=== PATIENT | female | born 1960 ===

== ENCOUNTER 2016-10-06 10:24 | Emergency (ER) | payer MEDICAID, OTHER ==
[2016-10-06 10:47] VITALS: BP 133/79; PULSE 87; RESP 18; TEMP 97.5; O2SAT 97
--- NOTE | 2016-10-06 12:03 | ED PDOC ---
HPI: Abdomen History Per: Patient History/Exam Limitations: no limitations Onset/Duration Of Symptoms: Days (5), Waxing/Waning, Gradual Outside of [place] travel?: No Current Symptoms Are (Timing): Still Present Severity: Moderate Pain Scale Rating Of: 8 Location Of Pain/Discomfort: RUQ (radiating to right flank) Associated Symptoms: Chills, Nausea, Back Pain. denies: Fever, Vomiting, Diarrhea, Urinary Symptoms Exacerbating Factors: Movement Additional History Per: Patient Abnormal Vaginal Bleeding: No <Veto Mckeon - Last Filed: 10/06/16 12:38> <Vicente Humphries - Last Filed: 10/06/16 14:43> Time Seen by Provider: 10/06/16 11:12 Chief Complaint (Nursing): Abdominal Pain Additional Complaint(s): 56 y/o F presenting with gradual onset abdominal pain which has been present x 5 days. Patient states pain started 5 days ago, initially LUQ, evaluated by [facility], diagnosed with UTI and discharged with ABX. Patient states pain migrated to RUQ last night and is currently worsening 8/10 intensity. Radiates to flank, aggravated by movement, associated with nausea and chills. No alleviating factors. Denies f/v/d/cp/sob/hematochezia,hematuria. No recent travel, consumption of abnormal foods, last BM this AM, soft, brown color. PMD: Dr. Tirado PMH: chronic back pain Meds: flexiril, tramadol, macrobid day 2 PSH: cholecystectomy, ALANIS, back surgery (Veto Mckeon) Supervising Attending Note <Veto Mckeon - Last Filed: 10/06/16 12:38> - Supervising Attending Note The Documented history was done by the: Physician Rural Route Mail [employer]rier The documented physical exam was done by the: Physician Rural Route Mail Carrier The documented procedures were done by the: Physician Rural Route Mail Carrier - Attestation: I have personally seen and examined this patient.: Yes I have fully participated in the care of the patient.: Yes I have reviewed all pertinent clinical information: Yes <Vicente Humphries - Last Filed: 10/06/16 14:43> - Notes: Notes:: Pain R flank. (Vicente Humphries) Past Medical History - Medical History PMH: Kidney Stones - Surgical History Surgical History: Back Surgery, Cholecystectomy, Hernia Repair - Family History Family History: States: Unknown Family Hx <Veto Mckeon F - Last Filed: 10/06/16 12:38> <YandelVicente M - Last Filed: 10/06/16 14:43> Vital Signs: Last Vital Signs Temp 97.5 F L 10/06/16 10:46 Pulse 87 10/06/16 10:46 Resp 18 10/06/16 10:46 BP 133/79 10/06/16 10:46 Pulse Ox 97 10/06/16 12:42 - Home Medications Home Medications: Ambulatory Orders Medication Instructions Recorded Famotidine [Pepcid] 20 mg PO DAILY PRN #6 tab 10/06/16 - Allergies Allergies/Adverse Reactions: Allergies Allergy/AdvReac Type Severity Reaction Status Date / Time No Known Allergies Allergy Verified 10/06/16 12:00 Review of Systems Constitutional: Positive for: Chills. Negative for: Fever, Weakness Eyes: Negative for: Pain Cardiovascular: Negative for: Chest Pain, Edema, Light Headedness Respiratory: Negative for: Cough, Shortness of Breath, Hemoptysis, Wheezing Gastrointestinal: Positive for: Nausea, Abdominal Pain. Negative for: Vomiting , Diarrhea, Constipation, Melena, Hematochezia, Hematemesis Genitourinary Female: Negative for: Dysuria, Hematuria, Vaginal Discharge, Vaginal Bleeding, Pelvic Pain Neurological: Negative for: Weakness, Numbness, Incoordination, Change in Speech <Veto Mckeon F - Last Filed: 10/06/16 12:38> Physical Exam - Physical Exam Appears: Positive for: Non-toxic, No Acute Distress Head Exam: Positive for: ATRAUMATIC, NORMOCEPHALIC Skin: Positive for: Warm, Dry Eye Exam: Positive for: EOMI, PERRL Neck: Positive for: Normal, Painless ROM Cardiovascular/Chest: Positive for: Regular Rate, Rhythm Respiratory: Positive for: Normal Breath Sounds. Negative for: Rales, Rhonchi, Wheezing Gastrointestinal/Abdominal: Positive for: Soft. Negative for: Tenderness, Distended, Guarding Back: Positive for: R CVA Tenderness. Negative for: L CVA Tenderness, Vertebral Tenderness Extremity: Negative for: Pedal Edema Neurologic/Psych: Positive for: Alert, Oriented <Veto Mckeon - Last Filed: 10/06/16 12:38> - Physical Exam Cardiovascular/Chest: Positive for: Regular Rate, Rhythm Respiratory: Positive for: Normal Breath Sounds <Vicente Humphries - Last Filed: 10/06/16 14:43> - ECG O2 Sat by Pulse Oximetry: 97 <Veto Mckeon - Last Filed: 10/06/16 12:38> - Laboratory Results Result Diagrams: 10/06/16 12:50 10/06/16 12:50 Interpretation Of Abn Labs: ast/alt elevation - ECG Pulse Ox Interpretation: Normal - CT Scan/US ct Other Rad Studies (CT/US): Read By Radiologist Other Rad Interpretation: no acute <Vicente Humphries - Last Filed: 10/06/16 14:43> - Progress ED Course And Treament: RUQ pain/flank pain - cbc, cmp, UA, toradol - CT abdo - reassess (Veto Mckeon Jose) 1438: Stable. AAOx3. Pain free. Tolerated PO. Fu with pcp. Mild elevated liver enzymes. Stable. Fu with pcp. (Vicente Humphries) Disposition - Disposition Disposition: Transfer of Care Disposition Time: 12:41 <Veto Mckeon - Last Filed: 10/06/16 12:38> - Patient ED Disposition Is Patient to be Admitted: No Counseled Patient/Family Regarding: Studies Performed, Diagnosis, Need For Followup, Rx Given - Disposition Disposition: Routine/Home <Vicente Humphries - Last Filed: 10/06/16 14:43> - Clinical Impression Clinical Impression: Abdominal pain, Elevated liver enzymes - Disposition Referrals: [facility] [Outside] - 10/07/16 Condition: STABLE Additional Instructions: See your doctor without fail in 3 days. You have elevated liver enzymes and need further evaluation. Return if not better in 3 days. Consulte a donald mdico sin falta en 3 bonilla. Tiene enzimas hepticas elevadas y necesita atilio evaluacin adicional. Vuelva si no mejor en 3 bonilla. Prescriptions: Famotidine [Pepcid] 20 mg PO DAILY PRN #6 tab PRN Reason: Pain Instructions: Acute Abdominal Pain (ED) Print Language: UGANDAN
[2016-10-06 13:05] LABS: HEMATOCRIT 43.9 % (34.0-47.0); MEAN CELL VOLUME 84.5 fl (81.0-99.0); MEAN CORPUSCULAR HEMOGLOBIN 28.6 pg (27.0-31.0); MEAN CORPUSCULAR HGB CONC 33.8 g/dL (33.0-37.0); RED CELL DISTRIBUTION WIDTH 14.4 % (11.5-14.5); WHITE BLOOD COUNT 6.1 K/uL (4.8-10.8)
--- NOTE | 2016-10-06 13:05 | CT ---
PROCEDURE: CT Abdomen and Pelvis without intravenous contrast HISTORY: RUQ and right flank pain COMPARISON: Comparison is made to the previous study dated 04/09/2013 TECHNIQUE: Axial and reformatted coronal and sagittal CT images of the abdomen and pelvis were obtained without IV or oral contrast administration.. Contrast Dose: 0 IV contrast Radiation dose: Total exam DLP = 931.46 mGy-cm. This CT exam was performed using one or more of the following dose reduction techniques: Automated exposure control, adjustment of the mA and/or kV according to patient size, and/or use of iterative reconstruction technique. FINDINGS: LOWER THORAX: Large hiatus hernia is again seen. No evidence of acute pathology at the lung bases. LIVER: The liver is mildly enlarged heterogeneous demonstrate patchy low-attenuation likely due to fatty infiltration. GALLBLADDER AND BILE DUCTS: Patient status post cholecystectomy since the previous exam. PANCREAS: Unremarkable. No gross lesion or ductal dilatation. SPLEEN: Unremarkable. ADRENALS: Unremarkable. No mass. KIDNEYS AND URETERS: Unremarkable. No hydronephrosis. No solid mass. VASCULATURE: Unremarkable. No aortic aneurysm. BOWEL: Unremarkable. No obstruction. No gross mural thickening. Colonic diverticulosis seen without evidence of diverticulitis. APPENDIX: There is no evidence of appendicitis. PERITONEUM: Unremarkable. No free fluid. No free air. LYMPH NODES: Unremarkable. No enlarged lymph nodes. BLADDER: Unremarkable. REPRODUCTIVE: The patient is likely status post partial hysterectomy. BONES: The patient is status post internal fixation at the lower lumbar spine. Normal alignment of the lumbar spine vertebrae is seen. OTHER FINDINGS: Small fat containing right inguinal hernia is again seen. IMPRESSION: No evidence of nephrolithiasis or hydronephrosis. Mild hepatomegaly with findings suggestive of [id number] hepatic steatosis. Status post cholecystectomy. No CT evidence of appendicitis.
[2016-10-06 13:10] LABS: URINE COLOR LIGHT YELLOW (YELLOW)
[2016-10-06 13:11] LABS: RBC URINE 1 /hpf (0-3); URINE BILIRUBIN NEGATIVE (NEGATIVE); URINE BLOOD TRACE (NEGATIVE); URINE GLUCOSE (UA) NEGATIVE (Normal); URINE KETONE NEGATIVE (NEGATIVE); URINE LEUKOCYTE ESTERASE Negative Leu/uL (Negative); URINE PROTEIN NEGATIVE (NEGATIVE); URINE UROBILINOGEN 0.2 mg/dL (0.2-1.0); WBC URINE 1 /hpf (0-5)
[2016-10-06 13:12] LABS: URINE BACTERIA FEW (<OCC)
[2016-10-06 13:15] LABS: ALB/GLOB RATIO 1.2 (1.0-2.1); ALKALINE PHOSPHATASE 101 U/L (38-126); ALT/SGPT 53 U/L (9-52); AST/SGOT 42 U/L (14-36); BILIRUBIN,TOTAL 1.2 mg/dl (0.2-1.3); BLOOD UREA NITROGEN 14 mg/dl (7-17); CALCIUM 8.7 mg/dL (8.4-10.2); CARBON DIOXIDE 24 mmol/L (22-30); CHLORIDE 105 mmol/L (98-107); GFR AFRICAN-AMERICAN > 60; GLUCOSE,RANDOM 114 mg/dL (65-105); LIPASE 83 U/L (23-300); POTASSIUM 3.7 MMOL/L (3.6-5.0); SODIUM 141 mmol/l (132-148); TOTAL PROTEIN 7.1 G/DL (6.3-8.2)
== END 2016-10-06 14:59 | disposition home or self-care (01) ==
LOC: H.ER 10:24
DX: R10.9 Unspecified abdominal pain (principal); R74.8 Abnormal levels of other serum enzymes; Z90.49 Acquired absence of other specified parts of digestive tract; G89.29 Other chronic pain

== ENCOUNTER 2016-10-07 20:24 | Emergency (ER) | payer MEDICAID ==
[2016-10-07 21:50] VITALS: PULSE 74; RESP 14; TEMP 98.4; O2SAT 100
[2016-10-07] MEDS ORDERED: Sodium Chloride 0.9% 1,000 ML IV STA (22:30)
[2016-10-07 23:01] LABS: BASO # 0.1 K/uL (0.0-0.2); EOS # 0.2 K/uL (0.0-0.7); EOS % 2.8 % (0.0-4.0); HEMATOCRIT 42.8 % (34.0-47.0); LYMPH # 2.8 K/uL (1.0-4.3); LYMPH % 39.6 % (20.0-40.0); MEAN CELL VOLUME 84.4 fl (81.0-99.0); MEAN CORPUSCULAR HEMOGLOBIN 28.4 pg (27.0-31.0); MEAN CORPUSCULAR HGB CONC 33.7 g/dL (33.0-37.0); MEAN PLATELET VOLUME 8.2 fl (7.2-11.7); MONO # 0.4 K/uL (0.0-0.8); MONO % 6.3 % (0.0-10.0); NEUT # 3.5 K/uL (1.8-7.0); NEUT % 50.3 % (50.0-75.0); NRBC % 0.1 % (0.0-0.0); RED CELL DISTRIBUTION WIDTH 14.3 % (11.5-14.5)
[2016-10-07 23:15] LABS: ALB/GLOB RATIO 1.1 (1.0-2.1); ALKALINE PHOSPHATASE 92 U/L (38-126); ALT/SGPT 48 U/L (9-52); AST/SGOT 43 U/L (14-36); BILIRUBIN,TOTAL 1.2 mg/dl (0.2-1.3); BLOOD UREA NITROGEN 18 mg/dl (7-17); CALCIUM 8.9 mg/dL (8.4-10.2); CARBON DIOXIDE 24 mmol/L (22-30); CHLORIDE 104 mmol/L (98-107); GFR AFRICAN-AMERICAN > 60; GLUCOSE,RANDOM 100 mg/dL (65-105); LIPASE 59 U/L (23-300); SODIUM 137 mmol/l (132-148); TOTAL PROTEIN 7.6 G/DL (6.3-8.2)
[2016-10-07 23:17] LABS: POTASSIUM 4.4 MMOL/L (3.6-5.0)
--- NOTE | 2016-10-07 23:43 | ED PDOC ---
HPI: Abdomen Time Seen by Provider: 10/07/16 22:31 Chief Complaint (Nursing): Abdominal Pain Chief Complaint (Provider): abdominal pain History Per: Patient History/Exam Limitations: no limitations Additional Complaint(s): 56yo F in ED for eval of epigastric pain since Monday was seen in ED yesterday- had negative CT scan and slightly elevated LFTs was given Pepcid-with limited relief. admits to nausea without vomiting. pt states pain radiates to back. no fever no chills no change in BM. pt states pain worsen after eating. pt has Ct shows enlarged liver. Past Medical History Reviewed: Historical Data, Nursing Documentation, Vital Signs Vital Signs: Last Vital Signs Temp 98.4 F 10/07/16 21:47 Pulse 74 10/07/16 21:47 Resp 14 10/07/16 21:47 BP Pulse Ox 100 10/07/16 23:45 - Medical History PMH: Kidney Stones - Surgical History Surgical History: Back Surgery, Cholecystectomy, Hernia Repair - Family History Family History: States: Unknown Family Hx - Home Medications Home Medications: Ambulatory Orders Medication Instructions Recorded Famotidine [Pepcid] 20 mg PO DAILY PRN #6 tab 10/06/16 Omeprazole Magnesium [Prilosec] 10 mg PO DAILY #10 suspdr.pkt 10/08/16 - Allergies Allergies/Adverse Reactions: Allergies Allergy/AdvReac Type Severity Reaction Status Date / Time No Known Allergies Allergy Verified 10/06/16 12:00 Review of Systems ROS Statement: Except As Marked, All Systems Reviewed And Found Negative Constitutional: Negative for: Fever, Chills Gastrointestinal: Positive for: Nausea, Abdominal Pain. Negative for: Vomiting Physical Exam - Reviewed Nursing Documentation Reviewed: Yes Vital Signs Reviewed: Yes - Physical Exam Appears: Positive for: Well, Non-toxic, No Acute Distress Head Exam: Positive for: ATRAUMATIC, NORMAL INSPECTION, NORMOCEPHALIC Neck: Positive for: Normal, Painless ROM Cardiovascular/Chest: Positive for: Regular Rate, Rhythm Respiratory: Positive for: CNT, Normal Breath Sounds Gastrointestinal/Abdominal: Positive for: Bowel Sounds, Soft, Tenderness ( epigastric) Neurologic/Psych: Positive for: Alert, Oriented - Laboratory Results Result Diagrams: 10/07/16 22:39 10/07/16 22:39 - ECG O2 Sat by Pulse Oximetry: 100 - Progress ED Course And Treament: impression: ulcer/GERD. pt at this time is stable no hematemsis. pt will get repeat labs draw and IVs fluids, zofran and pain control Medical Decision Making Medical Decision Making: PT with improved labs in ED. considering CT yesterday did not show acute disease , and labs have improved. Pt does not require further ER intervention at this time, will need GI f/u. case discussed with MD giancarlo. pt will be d/c on prilosec Disposition - Clinical Impression Clinical Impression: Abdominal pain - Patient ED Disposition Is Patient to be Admitted: No Counseled Patient/Family Regarding: Need For Followup, Rx Given - Disposition Referrals: Coleman Pendleton MD [Staff Provider] - Disposition: Routine/Home Disposition Time: 00:23 Condition: STABLE Prescriptions: Omeprazole Magnesium [Prilosec] 10 mg PO DAILY #10 suspdr.pkt Instructions: Gastroesophageal Reflux Disease (ED) Print Language: URDU
== END 2016-10-08 00:50 | disposition home or self-care (01) ==
LOC: H.ER 20:24
DX: K21.9 Gastro-esophageal reflux disease without esophagitis (principal); R11.0 Nausea; R94.5 Abnormal results of liver function studies

== ENCOUNTER 2017-08-03 20:29 | Emergency (ER) | payer MEDICAID, MEDICARE ==
[2017-08-03 20:51] VITALS: BP 158/95; PULSE 81; RESP 16; TEMP 98.7; O2SAT 100
--- NOTE | 2017-08-03 21:24 | ED PDOC ---
HPI: Chest Pain Time Seen by Provider: 08/03/17 21:02 Chief Complaint (Nursing): Chest Pain Chief Complaint (Provider): chest/back pain History Per: Patient, Family History/Exam Limitations: no limitations Onset/Duration Of Symptoms: Days (5), Waxing/Waning Current Symptoms Are (Timing): Still Present Quality: "Pain" Exacerbating Factors: Turning, Movement, Deep Breathing Additional Complaint(s): 57 y/o female presents with diffuse chest and upper back pain x 5 days. Pain worsened by movement, to touch,a nd with deep breaths. Patient was sick with flu-like symptoms one week ago, during which she reports persistent coughing. Patient finished course of tamiflu Monday and cough/congestion resolved, but states pain started the next day. Denies fever, nausea/vomiting, nasal congestion, cough, shortness of breath, palpitations, abdominal pain, leg pain/ swelling. Past Medical History Reviewed: Historical Data, Nursing Documentation, Vital Signs Vital Signs: Last Vital Signs Temp 98.7 F 08/03/17 20:47 Pulse 81 08/03/17 20:47 Resp 16 08/03/17 20:47 BP 158/95 H 08/03/17 20:47 Pulse Ox 100 08/03/17 21:26 - Medical History PMH: Back Problems, Gall Bladder Disease, Kidney Stones - Surgical History Surgical History: Back Surgery, Cholecystectomy, Hernia Repair - Family History Family History: States: Unknown Family Hx - Living Arrangements Living Arrangements: With Family - Social History Current smoker - smoking cessation education provided: No Alcohol: None Drugs: Denies - Home Medications Home Medications: Ambulatory Orders Medication Instructions Recorded Famotidine [Pepcid] 20 mg PO DAILY PRN #6 tab 10/06/16 Omeprazole Magnesium [Prilosec] 10 mg PO DAILY #10 suspdr.pkt 10/08/16 - Allergies Allergies/Adverse Reactions: Allergies Allergy/AdvReac Type Severity Reaction Status Date / Time No Known Allergies Allergy Verified 08/03/17 20:46 Review of Systems ROS Statement: Except As Marked, All Systems Reviewed And Found Negative Cardiovascular: Positive for: Chest Pain Musculoskeletal: Positive for: Back Pain Physical Exam - Reviewed Nursing Documentation Reviewed: Yes Vital Signs Reviewed: Yes - Physical Exam Appears: Positive for: Well, Non-toxic, No Acute Distress Head Exam: Positive for: ATRAUMATIC, NORMAL INSPECTION, NORMOCEPHALIC Skin: Positive for: Normal Color Eye Exam: Positive for: Normal appearance ENT: Positive for: Normal ENT Inspection Cardiovascular/Chest: Positive for: Regular Rate, Rhythm. Negative for: Chest Non Tender (tender to palpate upper anterior chest wall; no swelling, ecchymosis , flail chest noted) Respiratory: Positive for: Normal Breath Sounds Gastrointestinal/Abdominal: Positive for: Normal Exam Back: Positive for: Normal Inspection, Muscle Spasm (tender to palpate diffuse upper back; bilateral trapezius). Negative for: L CVA Tenderness, R CVA Tenderness, Vertebral Tenderness, Decreased ROM Extremity: Positive for: Normal ROM Neurologic/Psych: Positive for: Alert, Oriented - Laboratory Results Result Diagrams: 08/03/17 21:40 08/03/17 21:40 - ECG ECG: Positive for: Viewed By Me (reviewed by ED attending) ECG Rhythm: Positive for: Sinus Rhythm O2 Sat by Pulse Oximetry: 100 Pulse Ox Interpretation: Normal - Radiology X-Ray: Viewed By Me X-Ray Interpretation: No Acute Disease - Progress ED Course And Treament: labs, ekg, chest xray, IV toradol, PO flexeril On re-eval patient notes improvement of pain. PAtient has muscle relaxants and ibuprofen at home from previous back surgery; advised to take PRN pain. Follow up PMD within 48 hours. Return precautions given Disposition - Clinical Impression Clinical Impression: Chest wall pain, Back pain - Patient ED Disposition Is Patient to be Admitted: No Counseled Patient/Family Regarding: Studies Performed, Diagnosis, Need For Followup - Disposition Disposition: Routine/Home Disposition Time: 23:14 Condition: IMPROVED Instructions: Costochondritis (DC), Upper Back Pain (DC) Forms: [employer] (Serbian) Print Language: QATARI
[2017-08-03 21:51] LABS: BASO # 0.1 K/uL (0.0-0.2); BASO % 1.1 % (0.0-2.0); EOS # 0.2 K/uL (0.0-0.7); EOS % 2.6 % (0.0-4.0); HEMOGLOBIN 14.2 g/dL (12.0-16.0); LYMPH # 3.1 K/uL (1.0-4.3); LYMPH % 37.4 % (20.0-40.0); MEAN CELL VOLUME 84.9 fl (81.0-99.0); MEAN CORPUSCULAR HEMOGLOBIN 28.4 pg (27.0-31.0); MEAN CORPUSCULAR HGB CONC 33.5 g/dL (33.0-37.0); MEAN PLATELET VOLUME 8.2 fl (7.2-11.7); MONO # 0.6 K/uL (0.0-0.8); MONO % 6.6 % (0.0-10.0); NEUT # 4.3 K/uL (1.8-7.0); NEUT % 52.3 % (50.0-75.0); RBC 4.99 Mil/uL (3.80-5.20); RED CELL DISTRIBUTION WIDTH 14.2 % (11.5-14.5); WHITE BLOOD COUNT 8.3 K/uL (4.8-10.8)
[2017-08-03 22:18] LABS: ALB/GLOB RATIO 1.3 (1.0-2.1); ALBUMIN 4.1 g/dL (3.5-5.0); ALT/SGPT 54 U/L (9-52); AST/SGOT 34 U/L (14-36); BLOOD UREA NITROGEN 20 mg/dl (7-17); CALCIUM 9.6 mg/dL (8.4-10.2); GFR AFRICAN-AMERICAN > 60; GFR NON-AFRICAN AMERICAN > 60
== END 2017-08-03 23:14 | disposition home or self-care (01) ==
LOC: H.ER 20:29
DX: R07.89 Other chest pain (principal); M54.9 Dorsalgia, unspecified; Z87.442 Personal history of urinary calculi
CPT/HCPCS: 71046; 80053; 84484; 85025; 99281; J1885

== ENCOUNTER 2017-09-24 12:22 | Emergency (ER) | payer MEDICARE ==
[2017-09-24 12:28] VITALS: BMI 32.9
[2017-09-24 12:30] VITALS: RESP 20
[2017-09-24] MEDS ORDERED: Albuterol-Ipratrop 3 mg / 0.5 (3 ml) UD INH STA (12:51)
--- NOTE | 2017-09-24 12:54 | ED PDOC ---
HPI: CCC, URI, Sore Throat Time Seen by Provider: 09/24/17 12:32 Chief Complaint (Nursing): Back Pain Chief Complaint (Provider): Cough, Congestion History Per: Patient History/Exam Limitations: no limitations Onset/Duration Of Symptoms: Other (x 1 week) Current Symptoms Are (Timing): Still Present Additional Complaint(s): Shayy is a 57 y/o female who presents to the ED complaining of cough for the past week with associated subjective fever, nose congestion, and chest pain secondary to cough. Patient denies phlegm. No other medical complaints. Patient denies any recent travel or known sick contacts. Patient denies chills or body aches. PMD: Dr. Vinson Past Medical History Reviewed: Historical Data, Nursing Documentation, Vital Signs Vital Signs: Last Vital Signs Temp 98.3 F 09/24/17 12:28 Pulse 85 09/24/17 12:28 Resp 20 09/24/17 12:28 BP 141/85 09/24/17 12:28 Pulse Ox 96 09/24/17 13:07 - Medical History PMH: Back Problems - Surgical History Surgical History: Back Surgery, Cholecystectomy, Hernia Repair Other surgeries: hysterectomy, varicose veign removal, lithotripsy - Family History Family History: States: No Known Family Hx - Living Arrangements Living Arrangements: With Family - Social History Current smoker - smoking cessation education provided: No Ex-Smoker (has not smoked in the last 12 months): No Alcohol: None Drugs: Denies - Home Medications Home Medications: Ambulatory Orders Medication Instructions Recorded Famotidine [Pepcid] 20 mg PO DAILY PRN #6 tab 10/06/16 Omeprazole Magnesium [Prilosec] 10 mg PO DAILY #10 suspdr.pkt 10/08/16 Albuterol HFA [Ventolin HFA 90 1 puff IH ASDIR #1 unit 09/24/17 mcg/actuation (8 g)] Azithromycin [Zithromax] 250 mg PO DAILY #6 tab 09/24/17 Benzonatate 200 mg PO TID PRN #20 capsule 09/24/17 Methylprednisolone [Medrol Dose 4 mg PO ASDIR #21 mg 09/24/17 Pack (21 tabs)] - Allergies Allergies/Adverse Reactions: Allergies Allergy/AdvReac Type Severity Reaction Status Date / Time No Known Allergies Allergy Verified 08/03/17 20:46 Review of Systems ROS Statement: Except As Marked, All Systems Reviewed And Found Negative Constitutional: Positive for: Fever (subjective) ENT: Positive for: Nose Congestion Cardiovascular: Positive for: Chest Pain (due to cough) Respiratory: Positive for: Cough. Negative for: Sputum Gastrointestinal: Negative for: Nausea, Vomiting Physical Exam - Reviewed Nursing Documentation Reviewed: Yes Vital Signs Reviewed: Yes - Physical Exam Appears: Positive for: Well, Non-toxic, No Acute Distress Skin: Positive for: Normal Color. Negative for: Rash ENT: Positive for: Nasal Congestion. Negative for: Pharyngeal Erythema, Tonsillar Exudate, Tonsillar Swelling Cardiovascular/Chest: Positive for: Regular Rate, Rhythm. Negative for: Murmur Respiratory: Positive for: Decreased Breath Sounds. Negative for: Accessory Muscle Use, Respiratory Distress Lymphatic: Positive for: Normal Exam Neurologic/Psych: Positive for: Alert, Oriented - ECG Interpretation Of ECG: NSR 77 bpm, no acute changes, reviewed by PA and ED attending O2 Sat by Pulse Oximetry: 96 (RA) Pulse Ox Interpretation: Normal - Other Rad CXR X-Ray: Interpreted by Me, Viewed By Me X-Ray Interpretation: no acute finding Nebulizer Treatments/Peak Flow - Duonebs Number of Bronchodilator Doses given?: 1 (duoneb) - Pre/Post Peak Flow Pre Treatment Peak Flow: 300 Post treatment Peak Flow: 350 - Steroid Treatment Steroid: Oral (rx medrol dose pack) - Clinical Response Clinical Response: Improved Medical Decision Making Medical Decision Making: Time: 12:50 Initial Impression: 57 y/o female with cough and congestion Initial Plan: --Chest XR --EKG --Duoneb Will d/c with rx zithromax, tessalon perles, medrol dose pack and ventolin. Advised fluids, rest and PMD follow up in 2-3 days. Scribe Attestation: Documented by Laci Vaughan, acting as a scribe for Carmelina Pino PA-C. Provider Scribe Attestation: All medical record entries made by the Scribe were at my direction and personally dictated by me. I have reviewed the chart and agree that the record accurately reflects my personal performance of the history, physical exam, medical decision making, and the department course for this patient. I have also personally directed, reviewed, and agree with the discharge instructions and disposition. Disposition - Clinical Impression Clinical Impression: Acute bronchitis - Patient ED Disposition Is Patient to be Admitted: No Counseled Patient/Family Regarding: Studies Performed, Diagnosis, Need For Followup, Rx Given - Disposition Referrals: Micheal Vinson [Staff Provider] - Disposition: Routine/Home Disposition Time: 13:22 Condition: STABLE Additional Instructions: Take prescription meds as directed. Rest and drink plenty of fluids. Follow-up with primary doctor in 2-3 days. Prescriptions: Albuterol HFA [Ventolin HFA 90 mcg/actuation (8 g)] 1 puff IH ASDIR #1 unit Azithromycin [Zithromax] 250 mg PO DAILY #6 tab Benzonatate 200 mg PO TID PRN #20 capsule PRN Reason: Cough Methylprednisolone [Medrol Dose Pack (21 tabs)] 4 mg PO ASDIR #21 mg Instructions: Acute Bronchitis, Adult (DC) Forms: [employer] (Frisian)
--- NOTE | 2017-09-24 13:27 | RAD ---
HISTORY: cough COMPARISON: No prior. TECHNIQUE: Chest PA and lateral FINDINGS: LUNGS: No active pulmonary disease. PLEURA: No significant pleural effusion identified. No pneumothorax apparent. CARDIOVASCULAR: Normal. OSSEOUS STRUCTURES: No significant abnormalities. VISUALIZED UPPER ABDOMEN: Normal. OTHER FINDINGS: None. IMPRESSION: No active disease.
[2017-09-24 13:46] VITALS: BP 148/89; PULSE 78; TEMP 98; O2SAT 100
--- NOTE | 2017-09-25 08:16 | CARD ---
APPROVED REPORT EKG Measurement Heart [id number] OR [id number] <Conclusion> Normal sinus rhythm Left axis deviation Abnormal ECG
== END 2017-09-24 15:08 | disposition home or self-care (01) ==
LOC: H.ER 12:22
DX: J20.9 Acute bronchitis, unspecified (principal)

== ENCOUNTER 2017-10-26 17:32 | Emergency (ER) | payer MEDICARE ==
[2017-10-26 17:32] VITALS: BMI 32.9
[2017-10-26 17:42] VITALS: RESP 18
--- NOTE | 2017-10-26 18:11 | ED PDOC ---
HPI: Chest Pain Time Seen by Provider: 10/26/17 18:09 Chief Complaint (Nursing): Chest Pain Chief Complaint (Provider): cp History Per: Patient (57 y/o female here for chest pain/back pain since this am noted pleuritic. Back pain worse with movement. Denies any cough/fever/ chills. Has also noted ruq abd pain yesterday now resolved. Has h/o cholecystectomy. Has been seen by PMD Dr. Tom bustos of [place] and has had bloodwork monday and cxr yesterday. Did not take any OTC medications. ) Past Medical History Reviewed: Historical Data, Nursing Documentation, Vital Signs Vital Signs: Last Vital Signs Temp 98.1 F 10/26/17 17:40 Pulse 76 10/26/17 17:40 Resp 18 10/26/17 17:40 BP 143/84 10/26/17 17:40 Pulse Ox 97 10/26/17 19:06 - Medical History PMH: Back Problems, Gall Bladder Disease, Kidney Stones - Surgical History Surgical History: Back Surgery, Cholecystectomy, Hernia Repair - Family History Family History: States: Unknown Family Hx - Home Medications Home Medications: Ambulatory Orders Medication Instructions Recorded Famotidine [Pepcid] 20 mg PO DAILY PRN #6 tab 10/06/16 Omeprazole Magnesium [Prilosec] 10 mg PO DAILY #10 suspdr.pkt 10/08/16 Albuterol HFA [Ventolin HFA 90 1 puff IH ASDIR #1 unit 09/24/17 mcg/actuation (8 g)] Azithromycin [Zithromax] 250 mg PO DAILY #6 tab 09/24/17 Benzonatate 200 mg PO TID PRN #20 capsule 09/24/17 Methylprednisolone [Medrol Dose 4 mg PO ASDIR #21 mg 09/24/17 Pack (21 tabs)] Famotidine [Pepcid] 20 mg PO Q12 PRN #10 tab 10/26/17 Naproxen 375 mg PO Q12 PRN #10 tablet 10/26/17 - Allergies Allergies/Adverse Reactions: Allergies Allergy/AdvReac Type Severity Reaction Status Date / Time No Known Allergies Allergy Verified 08/03/17 20:46 Review of Systems ROS Statement: Except As Marked, All Systems Reviewed And Found Negative Physical Exam - Reviewed Nursing Documentation Reviewed: Yes Vital Signs Reviewed: Yes - Physical Exam Appears: Positive for: Well, Non-toxic, No Acute Distress Head Exam: Positive for: ATRAUMATIC, NORMAL INSPECTION, NORMOCEPHALIC Skin: Positive for: Normal Color, Warm, DRY Eye Exam: Positive for: EOMI, Normal appearance, PERRL ENT: Positive for: Normal ENT Inspection Neck: Positive for: Normal, Painless ROM Cardiovascular/Chest: Positive for: Regular Rate, Rhythm. Negative for: Chest Non Tender (no reproducible tenderness) Respiratory: Positive for: CNT, Normal Breath Sounds Gastrointestinal/Abdominal: Positive for: Normal Exam, Soft Back: Positive for: Normal Inspection Extremity: Positive for: Normal ROM Neurologic/Psych: Positive for: Alert, Oriented - Laboratory Results Result Diagrams: 10/26/17 18:30 10/26/17 18:30 - ECG ECG Rhythm: Positive for: Sinus Rhythm (NO ECTOPY NO ACUTE CHANGES) O2 Sat by Pulse Oximetry: 97 - Radiology X-Ray: Viewed By Me (NO ACUTE DISEASE) - Progress ED Course And Treament: CXR:NAD TORADOL 15 MG IV X 1 DOSE Disposition - Clinical Impression Clinical Impression: Chest pain, Back strain - Patient ED Disposition Is Patient to be Admitted: No - Disposition Disposition: Routine/Home Disposition Time: 19:22 Condition: FAIR Prescriptions: Famotidine [Pepcid] 20 mg PO Q12 PRN #10 tab PRN Reason: Pain, Moderate (4-7) Naproxen 375 mg PO Q12 PRN #10 tablet PRN Reason: Pain, Severe (8-10) Instructions: Muscle Strain Forms: [employer] ([place]), [facility] ED School/Work Excuse Print Language: NICARAGUAN
[2017-10-26 18:41] LABS: BASO # 0.1 K/uL (0.0-0.2); EOS # 0.2 K/uL (0.0-0.7); HEMOGLOBIN 14.6 g/dL (12.0-16.0); MEAN PLATELET VOLUME 8.6 fl (7.2-11.7); MONO # 0.5 K/uL (0.0-0.8); NEUT # 3.7 K/uL (1.8-7.0); WHITE BLOOD COUNT 7.5 K/uL (4.8-10.8)
[2017-10-26 18:48] LABS: BASO % 0.7 % (0.0-2.0); EOS % 2.8 % (0.0-4.0); LYMPH % 40.2 % (20.0-40.0); MEAN CELL VOLUME 85.4 fl (81.0-99.0); MEAN CORPUSCULAR HGB CONC 33.9 g/dL (33.0-37.0); MONO % 6.5 % (0.0-10.0); NEUT % 49.8 % (50.0-75.0); NRBC % 0.2 % (0.0-0.0); RBC 5.04 Mil/uL (3.80-5.20); RED CELL DISTRIBUTION WIDTH 14.2 % (11.5-14.5)
[2017-10-26 19:01] LABS: ALB/GLOB RATIO 1.3 (1.0-2.1); ALT/SGPT 52 U/L (9-52); AST/SGOT 46 U/L (14-36); BLOOD UREA NITROGEN 16 mg/dl (7-17); CALCIUM 8.9 mg/dL (8.4-10.2); GFR AFRICAN-AMERICAN > 60; GFR NON-AFRICAN AMERICAN > 60; LIPASE 89 U/L (23-300)
--- NOTE | 2017-10-26 19:28 | RAD ---
HISTORY: cp COMPARISON: Chest radiographs 09/24/2017. TECHNIQUE: Chest PA and lateral FINDINGS: LUNGS: No active pulmonary disease. PLEURA: No significant pleural effusion identified. No pneumothorax apparent. CARDIOVASCULAR: Normal. OSSEOUS STRUCTURES: No significant abnormalities. VISUALIZED UPPER ABDOMEN: Normal. OTHER FINDINGS: None. IMPRESSION: No interval acute cardiopulmonary disease appreciated.
[2017-10-26 20:06] LABS: SQUAMOUS EPITHIAL 7 /hpf (0-5); URINE AMORPHOUS SEDIMENT MODERATE /ul (<OCC); URINE BACTERIA OCC (<OCC); URINE BILIRUBIN NEGATIVE (NEGATIVE); URINE BLOOD NEGATIVE (NEGATIVE); URINE CLARITY TURBID (Clear); URINE COLOR YELLOW (YELLOW); URINE GLUCOSE (UA) NEG (Normal); URINE LEUKOCYTE ESTERASE NEG Leu/uL (Negative); URINE PROTEIN NEGATIVE (NEGATIVE)
[2017-10-26 20:57] VITALS: BP 130/78; PULSE 88; TEMP 98.4; O2SAT 99
--- NOTE | 2017-10-27 11:08 | CARD ---
APPROVED REPORT EKG Measurement Heart [id number] <Conclusion> Normal sinus rhythm Left axis deviation Possible Anterior infarct, age undetermined Abnormal ECG
== END 2017-10-26 20:15 | disposition home or self-care (01) ==
LOC: H.ER 17:32
DX: S39.012A Strain of muscle, fascia and tendon of lower back, initial encounter (principal); Y92.89 Other specified places as the place of occurrence of the external cause; R07.89 Other chest pain; Z90.49 Acquired absence of other specified parts of digestive tract
CPT/HCPCS: 71046; 80053; 81003; 83690; 84484; 85025; 85378; 93005; 96374; 99284; J1885

== ENCOUNTER 2018-10-05 11:39 | Emergency (ER) | payer MEDICARE ==
[2018-10-05 11:40] VITALS: BMI 32.9
[2018-10-05 12:13] VITALS: BP 147/88; PULSE 81; RESP 18; TEMP 97.8; O2SAT 96
--- NOTE | 2018-10-05 12:30 | ED PDOC ---
Lower Extremity Pain/Injury Time Seen by Provider: 10/05/18 12:24 Chief Complaint (Nursing): Lower Extremity Problem/Injury Chief Complaint (Provider): Lower Extremity Problem/Injury History Per: Patient History/Exam Limitations: no limitations Onset/Duration Of Symptoms: Days (x7) Current Symptoms Are (Timing): Still Present Additional Complaint(s): 58 y/o female presents to the ED for evaluation of left foot pain, onset one week ago. Patient notes pain was initially located to the base of her heel but has now radiated up the back of her leg to her calf, thus prompting today's visit. Patient reports of experiencing similar pain in the pas to the bottom of her bilateral feet. PMD: Ritchie Mcbride Past Medical History Reviewed: Historical Data, Nursing Documentation, Vital Signs Vital Signs: Last Vital Signs Temp 97.8 F 10/05/18 12:11 Pulse 81 10/05/18 12:11 Resp 18 10/05/18 12:11 BP 147/88 10/05/18 12:11 Pulse Ox 96 10/05/18 12:11 - Medical History PMH: Back Problems, Gall Bladder Disease, Kidney Stones - Surgical History Surgical History: Back Surgery, Cholecystectomy, Hernia Repair - Family History Family History: States: Unknown Family Hx - Home Medications Home Medications: Ambulatory Orders Medication Instructions Recorded Famotidine [Pepcid] 20 mg PO DAILY PRN #6 tab 10/06/16 Omeprazole Magnesium [Prilosec] 10 mg PO DAILY #10 suspdr.pkt 10/08/16 Albuterol HFA [Ventolin HFA 90 1 puff IH ASDIR #1 unit 09/24/17 mcg/actuation (8 g)] Azithromycin [Zithromax] 250 mg PO DAILY #6 tab 09/24/17 Benzonatate 200 mg PO TID PRN #20 capsule 09/24/17 Methylprednisolone [Medrol Dose 4 mg PO ASDIR #21 mg 09/24/17 Pack (21 tabs)] Famotidine [Pepcid] 20 mg PO Q12 PRN #10 tab 10/26/17 Naproxen 375 mg PO Q12 PRN #10 tablet 10/26/17 Naproxen 375 mg PO Q8 PRN #21 tablet 10/05/18 - Allergies Allergies/Adverse Reactions: Allergies Allergy/AdvReac Type Severity Reaction Status Date / Time No Known Allergies Allergy Verified 10/05/18 12:11 Review of Systems ROS Statement: Except As Marked, All Systems Reviewed And Found Negative Musculoskeletal: Positive for: Leg Pain, Foot Pain Physical Exam - Reviewed Nursing Documentation Reviewed: Yes Vital Signs Reviewed: Yes - Physical Exam Appears: Positive for: No Acute Distress Extremity: Positive for: Tenderness (Tenderness to the left heel. Nontender plantar foot), Other (Peggy's Sign) - ECG O2 Sat by Pulse Oximetry: 96 (RA) Pulse Ox Interpretation: Normal Medical Decision Making Medical Decision Making: Time: 1226 Impression: Sciatica Rule out DVT Plan: -- Toradol 30 mg IM -- Foot Left 3 Views XR -- US Duplex Lower Extremity Vein Left Time: 1322 XR RESULTS Date of service: 10/05/2018 PROCEDURE: Bilateral Feet Radiographs. HISTORY: Heel pain, bilateral. No history of trauma provided. COMPARISON: None. TECHNIQUE: 6 views obtained. FINDINGS: BONES: Right Foot: Normal. No fracture. Left Foot: Small plantar calcaneal spur. JOINTS: Right Foot: Normal. No osteoarthritis. Left Foot: Normal. No osteoarthritis. SOFT TISSUES: Right Foot: Plantar soft tissue prominence. Left Foot: Prominent plantar soft tissues at the level of the calcaneus. OTHER FINDINGS: None. IMPRESSION: Small, unilateral-left plantar calcaneal spur. Indirect findings, prominent plantar soft tissue bilaterally possibly represents plantar fasciitis. Time: 1426 US RESULTS Date of service: 10/05/2018 PROCEDURE: Bilateral lower extremity venous duplex Doppler. HISTORY: left leg pain COMPARISON: None available. TECHNIQUE: Bilateral common femoral, superficial femoral, popliteal and posterior tibial veins were evaluated. Flow was assessed with color Doppler, compressibility, assessment of phasic flow and augmentation response. FINDINGS: COMMON FEMORAL VEIN: Right CFV: Unremarkable. Left CFV: Unremarkable. SUPERFICIAL FEMORAL VEIN: Right SFV: Unremarkable. Left SFV: Unremarkable. POPLITEAL VEIN: Right Popliteal: Unremarkable. Left Popliteal: Unremarkable. POSTERIOR TIBIAL VEIN: Right PTV: Unremarkable. Left PTV: Unremarkable. OTHER FINDINGS: None. IMPRESSION: No evidence of deep venous thrombosis. Scribe Attestation: Documented by Constance Otto, acting as a scribe Stewart Santiago PA-C. Provider Scribe Attestation: All medical record entries made by the Scribe were at my direction and personally dictated by me. I have reviewed the chart and agree that the record accurately reflects my personal performance of the history, physical exam, medical decision making, and the department course for this patient. I have also personally directed, reviewed, and agree with the discharge instructions and disposition. Disposition - Clinical Impression Clinical Impression: Plantar fasciitis - Patient ED Disposition Is Patient to be Admitted: No - Disposition Referrals: Podiatry Clinic [Outside] Disposition: Routine/Home Disposition Time: 14:34 Condition: FAIR Additional Instructions: MARILUZ LEVINE'S HEEL INSERTS Prescriptions: Naproxen 375 mg PO Q8 PRN #21 tablet PRN Reason: Pain, Moderate (4-7) Instructions: Heel Pain (Caused by Plantar Fasciitis) (DC), Plantar Fasciitis Exercises Forms: [facility] ED School/Work Excuse Print Language: VINCENTIAN
--- NOTE | 2018-10-05 13:26 | RAD ---
Date of service: 10/05/2018 PROCEDURE: Bilateral Feet Radiographs. HISTORY: Heel pain, bilateral. No history of trauma provided. COMPARISON: None. TECHNIQUE: 6 views obtained. FINDINGS: BONES: Right Foot: Normal. No fracture. Left Foot: Small plantar calcaneal spur. JOINTS: Right Foot: Normal. No osteoarthritis. Left Foot: Normal. No osteoarthritis. SOFT TISSUES: Right Foot: Plantar soft tissue prominence. Left Foot: Prominent plantar soft tissues at the level of the calcaneus. OTHER FINDINGS: None. IMPRESSION: Small, unilateral-left plantar calcaneal spur. Indirect findings, prominent plantar soft tissue bilaterally possibly represents plantar fasciitis.
--- NOTE | 2018-10-05 14:29 | US ---
Date of service: 10/05/2018 PROCEDURE: Bilateral lower extremity venous duplex Doppler. HISTORY: left leg pain COMPARISON: None available. TECHNIQUE: Bilateral common femoral, superficial femoral, popliteal and posterior tibial veins were evaluated. Flow was assessed with color Doppler, compressibility, assessment of phasic flow and augmentation response. FINDINGS: COMMON FEMORAL VEIN: Right CFV: Unremarkable. Left CFV: Unremarkable. SUPERFICIAL FEMORAL VEIN: Right SFV: Unremarkable. Left SFV: Unremarkable. POPLITEAL VEIN: Right Popliteal: Unremarkable. Left Popliteal: Unremarkable. POSTERIOR TIBIAL VEIN: Right PTV: Unremarkable. Left PTV: Unremarkable. OTHER FINDINGS: None. IMPRESSION: No evidence of deep venous thrombosis.
== END 2018-10-05 14:39 | disposition home or self-care (01) ==
LOC: H.ER 11:39
DX: M72.2 Plantar fascial fibromatosis (principal)
CPT/HCPCS: 73630; 93970; 96372; 99283; J1885